=== PATIENT | male | born 2005 ===

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

== ENCOUNTER 2024-03-05 09:59 | Outpatient (AMB) | payer OTHER, SELFPAY ==
[2024-03-09 10:00] VITALS: BP 110/70; PULSE 96; RESP 16; TEMP 36.8; O2SAT 98
--- NOTE | 2024-03-09 14:11 | A.SCHOOL_ITS ---
Intake Vital Signs 03/09/24 10:00 Weight 146 lb BP 110/70 Blood Pressure Location Rt brachial Position Sitting Respiration 16 Pulse 96 Pulse Source Palpation Temp 98.2 F Temp Source Tympanic Pulse Oximetry (%) 98 Oxygen Delivery Method Room Air Intake Visit Reasons: Back pain Allergies DAIRY PRODUCTS Allergy (Unknown, Uncoded 07/18/23 08:23) UNKNOWN milk Allergy (Unknown, Uncoded 07/18/23 08:23) hives and vomits Medication List - Last Reconciled 03/09/24 by Shaina Mckeon NP albuterol sulfate 2.5 mg (3 mL) inhalation Q4-6H PRN albuterol sulfate 90 mcg/actuation 2 puffs PO Q4-6H PRN 30 days emtricitabine-tenofovir (TDF) 200-300 mg 1 tab PO DAILY fluticasone propion-salmeterol 500-50 mcg/dose (Advair Diskus) 1 inh inhalation BID 30 days nebulizers 4-6 hrs as directed tezepelumab-ekko (Tezspire) 210 mg (1.91 mL) subcut Q4W 28 days HPI HPI Comments History of Present Illness Details 18 yr male presents to Teen clinic for b ack pain. He comes in and has an ice pack to his R mid back; He says that he is very tired as he was in the ER at [facility] overnight for the pain. He says that he got acute back pain after coughing randomly; He denies any fever or recent URI but says he has smoke for a few years so gets a cough; smokes MJ tobacco He says his back hurts mostly to R mid upper back he feels that I could see it and wants to show me. He denies any redness; no bruising; no radiation of pain to lumbar region nor buttocks; no numbness, no tingling; no problems with urination nor BM's He says the ER said to put ice or warm compress on it. He says that he had rolled on some of his mother's lidocaine roll and is really hoping one of his athlete friends will have some Icy Hot. He says that he last took ibuprofen around 2am; He has not had anything for pain since; He has not had anything to eat. He is very uncomfortable and does not really want to be in school. However, he says his attendance is very important because he is going to be graduating in a couple weeks and must attend. He has some ideas about what he will do post graduation but he says that he feels overwhelmed with options; He mentioned that one of his teachers thinks that he can maybe get some scholarship for music. [facility] Medical History Injury of left hand Trauma to eye, bilateral Exposure to COVID-19 virus Gender identity disorder Family History Mother No problems noted. Social History Household Members: Family Patient Tobacco Use Status: Current everyday Tobacco user Tobacco use type: Cigarette Cigarettes Per Day: 1 Substance Use Type: Marijuana Cognitive needs: No Hearing needs: No Vision needs: No Questionnaire YONAS-7 AMB Questionnaire YONAS-7 Date YONAS - 7 assessed: 05/16/23 Source: Developed by Drs. Eliezer Schmitt, Josee Johnson, Johnnie Jordan and colleagues, with an educational marco from [employer]. Review of Systems Const All systems reviewed & are unremarkable except as noted in HPI and below Physical exam (School Based) Tobacco/Smoking Status: Tobacco use Status Patient Tobacco Use Status Current everyday Tobacco 08/22/23 14:38 Tobacco use type Cigarette 08/22/23 14:38 Thrive Assessment: Date of Thrive Assessment Date Thrive assessed 05/16/23 05/16/23 11:46 Const General: cooperative, well groomed and other (intermittently appears uncomfortable w/ facial grimacing and rocking ) Nutritional Appearance: thin (tall young adult ) Orientation/consciousness: patient oriented x3 HENMT Head: Yes normal to inspection, Yes normocephalic and Yes atraumatic Ears: hearing grossly normal bilaterally and external ears normal General nose exam: Normal external nose present and No nasal discharge present Face and sinus: Yes normal facial exam and Yes face symmetric Mouth: lip normal Throat: Yes uvula midline Eyes Periorbital: periorbital findings normal Neck Neck: Yes normal visual inspection and Yes full ROM Resp Effort & Inspection: normal respiratory effort and able to speak in complete sentences Auscultation: clear to auscultation bilaterally Cardio Rate: regular rate Rhythm: regular rhythm Back/Spine/Pelvis Thoracic/Lumbar Spine: paraspinal muscle tenderness on the right and other (R thoracic region appeared more raised compared to L; no pain to spine ) Neuro General: patient oriented x3 Office Meds acetaminophen 325 mg tablet Performing Provider: Shaina Mckeon NP Performing Location: [facility] Administered by: Shaina Mckeon NP on 03/05/24 10:31 Dose Route Admin Location Dispensed Lot Number Expiration Date [facility] Mail Deliverer 325 mg PO 325 mg [id number] 09/06/26 8649-0362-01 [employer] 325 mg PO 1 tab 325 mg PO 1 tab ibuprofen 200 mg tablet Performing Provider: Shaina Mckeon NP Performing Location: [facility] Administered by: Shania Mckeon NP on 03/05/24 12:30 Dose Route Admin Location Dispensed Lot Number Expiration Date [facility] Mail Deliverer 200 mg PO 200 mg [id number] 02/04/25 6250-4408-55 [employer] 200 mg PO 1 tab 200 mg PO 1 tab Assessment and Plan Assessment & Plan (1) Acute thoracic back pain: Code(s): M54.6 - Pain in thoracic spine Qualifiers: Back pain laterality: right Qualified Code(s): M54.6 - Pain in thoracic spine Plan 18 yr individual preferred name Viviana seen s/p subjective report that he was seen w/in the last 12 hr at [facility] ER; agree alternate cold and warm compress;pain management with OTC Tylenol and or Motrin and if NSAID takes w/ plenty of water and ideally solids; as Viviana starts feeling better stretching will help; do not lie in bed for prolonged periods, change positions slowly; if pain is getting worse no better or any additional neurological s/s need to call medical home [facility] Orders: Orders School Based Oral Medications 03/05/24 M54.6 - Pain in thoracic spine Medications: New ibuprofen 200 mg PO ONCE 3 tabs 0RF back pain M54.6 - Pain in thoracic spine acetaminophen 325 mg PO ONCE 3 tabs 0RF back pain M54.6 - Pain in thoracic spine Coding Level of Care Code Est Pt Level 3 (03475) Diagnoses Acute right-sided thoracic back pain M54.6 Back pain laterality: right
== END 2024-03-05 10:09 | disposition home or self-care (01) ==
LOC: HO.SBHN 09:59
PROVIDERS: PCP Physician Assistant; Visit Provider Nurse Practitioner Pediatrics
DX: M54.6 Pain in thoracic spine (principal)
CPT/HCPCS: 99213

== ENCOUNTER → 2024-03-05 09:59 | Outpatient (BNVA) | payer OTHER, SELFPAY | PROVIDERS: PCP Physician Assistant; Visit Provider Nurse Practitioner Pediatrics ==

== ENCOUNTER 2024-04-16 15:33 | Outpatient (AMB) | payer OTHER, SELFPAY ==
[2024-04-16 15:40] VITALS: BP 124/68; PULSE 70; O2SAT 98; BMI 20.5
--- NOTE | 2024-04-16 15:40 | A.OFFVIS_ITS ---
Vital Signs 04/16/24 15:40 Height 5 ft 10 in Weight 143 lb BMI 20.5 BP 124/68 Blood Pressure Location Rt brachial Position Sitting Pulse 70 Pulse Source Pulse Oximeter Pulse Oximetry (%) 98 Oxygen Delivery Method Room Air Intake Visit Reasons: asthma Allergies DAIRY PRODUCTS Allergy (Unknown, Uncoded 04/16/24 15:43) UNKNOWN milk Allergy (Unknown, Uncoded 04/16/24 15:43) hives and vomits HPI HPI asthma: Details: 18-year-old, nonsmoker, with asthma since childhood, now followed for moderate to severe allergic asthma. After the last office visit patient has been started on Tezspire with improving symptom control, unfortunately he was not able to do several recent injections. He continues to use Advair 500 and albuterol MDI/nebs. He denies any recent exacerbations. [facility] Medical History Injury of left hand Trauma to eye, bilateral Exposure to COVID-19 virus Gender identity disorder Family History Mother No problems noted. Social History Household Members: Family Patient Tobacco Use Status: Current everyday Tobacco user Tobacco use type: Cigarette Cigarettes Per Day: 1 Substance Use Type: Marijuana Cognitive needs: No Hearing needs: No Vision needs: No Review of Systems Const Denies daytime sleepiness, Denies excessive sweating, Denies fatigue, Denies fever(s), Denies lethargy, Denies malaise, Denies night sweats, Denies snoring and Denies weight loss Eyes Denies blurry vision and Denies itchy eyes ENT Denies nasal congestion, Denies post nasal drip, Denies sinus pain, Denies sinus pressure and Denies other ( Thrush) Card Denies chest pain, Denies pedal edema, Denies dyspnea, Denies orthopnea and Denies paroxysmal nocturnal dyspnea Resp Denies cough, Denies hemoptysis, Denies excessive phlegm production, Denies dyspnea, Denies snoring and Denies wheezing GI Denies abdominal pain and Denies heartburn Musc Denies myalgias, Denies arthralgias and Denies joint swelling Skin/Breast Denies rash Neuro Denies memory loss and Denies seizure-like activity Psych Denies abnormal sleep pattern, Denies anxiety and Denies memory loss Endo Denies excessive sweating, Denies fatigue and Denies heat intolerance Chung/Lymph Denies easy bruising Aller/Immun Denies itchy eyes, Denies seasonal rhinorrhea and Denies wheezing Physical Exam Vital Signs: Last Vital Signs Pulse 70 04/16/24 15:40 BP 124/68 04/16/24 15:40 Pulse Ox 98 04/16/24 15:40 Oxygen Delivery Method Room Air 04/16/24 15:40 BMI result Body Mass Index 20.5 Const General: no acute distress and alert Nutritional Appearance: not obese Orientation/consciousness: Other orientation findings ( oriented) HEENT Head: Yes atraumatic Eyes General: appearance normal, both eyes and all related structures Sclerae: sclerae normal EOM: EOMs intact bilaterally Neck Neck: Yes supple Lymphatic: no lymphadenopathy noted Resp Effort & Inspection: normal respiratory effort and no use of accessory muscles Auscultation: clear to auscultation bilaterally Cardio Rate: regular rate Rhythm: regular rhythm Heart sounds: no gallops, no murmurs and no rubs Skin General skin exam: other ( warm) Extrem General: No clubbing, No cyanosis and No edema Assessment & Plan Assessment & Plan (1) Severe persistent asthma: Code(s): J45.50 - Severe persistent asthma, uncomplicated Category: Medical Qualifiers: Asthma complication type: unspecified Qualified Code(s): J45.50 - Severe persistent asthma, uncomplicated Plan: Somewhat worsening control off Tezspire. Restart Tespire. Continue Advair and albuterol MDI /nebs. (2) Environmental allergies: Code(s): Z91.09 - Other allergy status, other than to drugs and biological substances Category: Medical Plan: Expect to improve on Tezspire. Coding Level of Care Code Est Pt Level 4 (24153) Diagnoses Severe persistent asthma, unspecified whether complicated J45.50 Asthma complication type: unspecified Environmental allergies Z91.09
== END 2024-04-16 15:51 | disposition home or self-care (01) ==
PROVIDERS: PCP Physician Assistant; Visit Provider Internal Medicine Pulmonary Disease
DX: J45.50 Severe persistent asthma, uncomplicated (principal); Z91.09 Other allergy status, other than to drugs and biological substances
CPT/HCPCS: 99214

== ENCOUNTER → 2024-04-16 15:33 | Outpatient (BNVA) | payer OTHER, SELFPAY | PROVIDERS: PCP Physician Assistant; Visit Provider Internal Medicine Pulmonary Disease | DX: J45.50 Severe persistent asthma, uncomplicated (principal); Z91.09 Other allergy status, other than to drugs and biological substances; Z79.899 Other long term (current) drug therapy | CPT/HCPCS: 99212 ==